=== PATIENT | female | born 1985 | race Caucasian/White ===

== ENCOUNTER 2023-10-27 14:19 | Emergency (ER) | payer SELFPAY ==
--- NOTE | 2023-10-27 14:56 | ER ---
Nurse's Notes [facility] Name: Mica Delacruz Age: 38 yrs Sex: Female : 1985 Arrival Date: 10/27/2023 Time: 14:19 Bed 9 Private MD: Diagnosis: Periapical abscess without sinus Presentation: 10/26 14:25 Chief complaint: Patient states: left sided facial swelling. Coronavirus screen: At as6 this time, the client does not indicate any symptoms associated with coronavirus-19. Ebola Screen: No symptoms or risks identified at this time. Initial Sepsis Screen: Does the patient meet any 2 criteria? No. Patient's initial sepsis screen is negative. Does the patient have a suspected source of infection? No. Patient's initial sepsis screen is negative. Risk Assessment: Do you want to hurt yourself or someone else? Patient reports no desire to harm self or others. Onset of symptoms was October 26, 2023. 14:25 Acuity: MELI 4 as6 14:25 Method Of Arrival: Ambulatory as6 Triage Assessment: 14:30 General: Appears uncomfortable, Behavior is cooperative, appropriate for age, anxious. bp Pain: Complains of pain in mouth. EENT: Reports pain in mouth. 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 - Infectious Disease History:: Denies. - Social history:: Smoking status: Reported history of juuling and/or vaping. Screenin:32 [facility] ED Fall Risk Assessment (Adult) History of falling in the last 3 months, bp including since admission. Abuse screen: Denies threats or abuse. Denies injuries from another. Nutritional screening: No deficits noted. Tuberculosis screening: No symptoms or risk factors identified. Assessment: 14:30 General: Appears uncomfortable, Behavior is cooperative, appropriate for age, anxious. bp Pain: Complains of pain in mouth. Neuro: No deficits noted. Cardiovascular: No deficits noted. Respiratory: No deficits noted. Vital Signs: 14:25 BP 123 / 78; Pulse 100; Resp 18 S; Temp 98.1; Pulse Ox 100% ; Weight 90.72 kg; Height 5 as6 ft. 7 in. ; 14:25 Body Mass Index 31.32 (90.72 kg, 170.18 cm) as6 ED Course: 14:22 Patient arrived in ED. mg5 14:23 Unique Reed FNP-C is [facility]. kb 14:23 Jasiel Leonardo MD is Attending Physician. kb 14:27 Triage completed. as6 14:28 Arm band placed on. as6 14:30 Tani Reed, RN is Primary Nurse. bp 14:32 Patient has correct armband on for positive identification. Bed in low position. Call bp light in reach. 15:13 No provider procedures requiring assistance completed. Patient did not have IV access bp during this emergency room visit. Administered Medications: 15:01 Drug: Hydrocodone-Acetaminophen PO (7.5 mg-325 mg) 1 tabs PO once Route: PO; bp 15:14 Follow up: Response: No adverse reaction bp 15:01 Drug: Amoxicillin-Clavulanate PO 875 mg PO once Route: PO; bp 15:14 Follow up: Response: No adverse reaction bp Outcome: 14:56 Discharge ordered by MD. kb 15:13 Discharged to home ambulatory, with family, bp 15:13 Condition: stable 15:13 Discharge instructions given to patient, Instructed on discharge instructions, follow up and referral plans. medication usage, Demonstrated understanding of instructions, follow-up care, medications, Prescriptions given X 2, 15:14 Patient left the ED. bp Signatures: Unique Reed FNP-C FNP-Paxtonb Tani Reed, RN RN bp Casey Mcgregor RN RN as6 Preston Esther mg5
--- NOTE | 2023-10-27 14:56 | EDPHYS ---
Physician Documentation [facility] Name: Mica Delacruz Age: 38 yrs Sex: Female : 1985 Arrival Date: 10/27/2023 Time: 14:19 Bed 9 Private MD: ED Physician Jasiel Leonardo HPI: 10/26 23:29 This 38 yrs old Female presents to ER via Ambulatory with complaints of Facial Swelling.kb 23:29 Patient is a 38-year-old female who presents for swelling to left cheek and gum pain to kb left upper side. Reports symptoms started yesterday. Denies fever, nausea, vomiting.. 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 - Infectious Disease History:: Denies. - Social history:: Smoking status: Reported history of juuling and/or vaping. ROS: 23:28 Constitutional: As per HPI kb Exam: 23:28 Constitutional: This is a well developed, well nourished patient who is awake, alert, kb and in no acute distress. Head/Face: Normocephalic, atraumatic. Cardiovascular: Regular rate Respiratory: Respirations even and unlabored. No increased work of breathing. Talking in full sentences Skin: Warm, dry with normal turgor. Normal color. MS/ Extremity: Pulses equal, no cyanosis. Neurovascular intact. Full, normal range of motion. Neuro: Awake and alert, GCS 15, oriented to person, place, time, and situation. Moves all extremities. Normal gait. 23:28 ENT: Dental exam: dental caries, gum swelling, that is moderate, specifically in the upper left second bicuspid (#13), upper left first molar (#14) and upper left second molar (#15), missing teeth, Vital Signs: 14:25 BP 123 / 78; Pulse 100; Resp 18 S; Temp 98.1; Pulse Ox 100% ; Weight 90.72 kg; Height 5 as6 ft. 7 in. ; 14:25 Body Mass Index 31.32 (90.72 kg, 170.18 cm) as6 MDM: 14:23 Patient medically screened. kb 23:29 Data reviewed: vital signs, nurses notes. kb 23:54 Differential diagnosis: dental caries, gingivitis, dental abscess, pericoronitis. Test kb considered but Not performed: Labs: cbc, cmp considered but pt is nontoxic in appearance and afebrile. Care significantly affected by the following Social Determinants of Health: Poor access to healthcare and/or lack of insurance. Counseling: I had a detailed discussion with the patient and/or guardian regarding the historical points, exam findings, and any diagnostic results supporting the discharge/admit diagnosis, the need for outpatient follow up, a dentist, to return to the emergency department if symptoms worsen or persist or if there are any questions or concerns that arise at home. Administered Medications: 15:01 Drug: Hydrocodone-Acetaminophen PO (7.5 mg-325 mg) 1 tabs PO once Route: PO; bp 15:14 Follow up: Response: No adverse reaction bp 15:01 Drug: Amoxicillin-Clavulanate PO 875 mg PO once Route: PO; bp 15:14 Follow up: Response: No adverse reaction bp Disposition Summary: 10/27/23 14:56 Discharge Ordered Notes: Location: Home kb Condition: Stable kb Diagnosis - Periapical abscess without sinus kb Followup: kb - With: Emergency Department - When: As needed - Reason: Worsening of condition Followup: kb - With: Private Physician - When: 2 - 3 days - Reason: Recheck today's complaints, Continuance of care, Re-evaluation by your physician Discharge Instructions: - Discharge Summary Sheet kb - Dental Pain, [id number] kb - Dental Abscess, [id number] kb Forms: - Medication Reconciliation Form kb - Antibiotic Education kb - Prescription Opioid Use kb - Patient Portal Instructions kb - Leadership Thank You Letter kb Prescriptions: - Augmentin 875-125 mg Oral Tablet - take 1 tablet ORAL route every 12 hours for 10 days; 20 tablet; Refills: 0, kb Product Selection Permitted - Diclofenac Sodium 75 mg Oral tablet, delayed release (enteric coated) - take 1 tablet ORAL route 2 times per day As needed; 30 tablet; Refills: 0, kb Product Selection Permitted Addendum: 10/31/2023 09:34 Co-signature as Attending Physician, Jasiel Leonardo MD I reviewed the patient's care r t provided by the Advanced Practice Provider and agree with the diagnosis and treatment plan. Signatures: Unique Reed, ROXANAC THOMAS-Tani Vuong, RN RN bp Casey Mcgregor RN RN as6 Jasiel Leonardo MD MD rt
[2023-10-27] MEDS ORDERED: HYDROCODONE/APAP 7.5/325 MG TAB ONE (14:58)
[2023-10-27] MEDS ORDERED: AMOX/K CLAV 875 MG TAB ONE (14:58)
[2023-10-27 15:49] VITALS: BP 123/78; TEMP 98.1; O2SAT 100
== END 2023-10-27 15:14 | disposition home or self-care (01) ==
LOC: ER 14:19
DX: K04.7 Periapical abscess without sinus (principal)
CPT/HCPCS: 99283